=== PATIENT | male | born 1990 | race Caucasian/White ===

== ENCOUNTER 2018-09-15 22:55 | Emergency (ER) | payer BC ==
[2018-09-15 23:43] VITALS: BP 128/81
--- NOTE | 2018-09-16 00:35 | RADIOLOGY REPORT (SQ) ---
EXAM DESCRIPTION: Right wrist 3 views CLINICAL HISTORY: 28 years Male, fell on wrist COMPARISON: None. FINDINGS: A lucency extends transversely through the scaphoid waist. No displacement. Overall alignment of the carpus is anatomic. No additional fractures. IMPRESSION: 1. Age-indeterminate nondisplaced scaphoid fracture
--- NOTE | 2018-09-16 01:17 | ER Document Report ---
Addendum entered and electronically signed by TERRY SANTANA FNP 09/16/18 02:14: Procedures - Immobilization Left Wrist Pre-Proc Neuro Vasc Exam: Normal Immobilizer type: Thumb spica Performed by: PCT Post-Proc Neuro Vasc Exam: Normal, Unchanged from pre-exam Alignment checked and good: Yes Original Note: HPI - HPI Time Seen by Provider: 09/15/18 23:58 Pain Level: 3 Context: Patient is a pleasant 28-year-old male who presents to the emergency department with right wrist pain. Last night 1:00 in the morning that he jumped a fence and landed on his right wrist. He has pain at his anatomical snuffbox area. He states that he rolled on his right shoulder and does not recall how his wrist landed. Patient is right-handed. Denies any past medical history. He does not take any medications. - ROS Notes: REVIEW OF SYSTEMS: CONSTITUTIONAL : Denies recent illness. Denies recent unintentional weight loss. Denies fever, chills, or sweats. EENT: Denies eye, ear, throat, or mouth pain, discharge, or symptoms. Denies nasal or sinus congestion. CARDIOVASCULAR: Denies chest pain. RESPIRATORY: Denies shortness of breath, cough, congestion, difficulty breathing, or wheezing. GASTROINTESTINAL: Denies nausea, vomiting, and diarrhea. Denies abdominal pain. Denies constipation. GENITOURINARY: Denies difficulty urinating, burning, blood in urine, urgency or frequency. MUSCULOSKELETAL: See HPI SKIN: Denies rash, itchiness, or lesions HEMATOLOGIC : Denies easy bruising or bleeding. LYMPHATIC: Denies swollen, painful, enlarged glands. NEUROLOGICAL: Denies no numbness or tingling denies weakness. Denies headache. Denies altered mental status. Denies alteration in speech. PSYCHIATRIC: Denies stress, anxiety, alteration in sleep patterns, or depression. All other systems reviewed and negative. - MUSCULOSKELETAL Musculoskeletal: REPORTS: Extremity pain Past Medical History - General Information source: Patient - Social History Smoking Status: Never Smoker Family History: Arthritis, CAD, DM, Hyperlipidemia, Hypertension, Other - copd Patient has suicidal ideation: No Patient has homicidal ideation: No Renal/ Medical History: Denies: Hx Peritoneal Dialysis Musculoskeletal Medical History: Reports Hx Musculoskeletal Trauma Traumatic Medical History: Reports: Hx Fractures - Immunizations Immunizations up to date: Yes Hx Diphtheria, Pertussis, Tetanus Vaccination: Yes Vertical Provider Document - CONSTITUTIONAL Notes: PHYSICAL EXAMINATION: GENERAL: Appears well, healthy, well-nourished, no acute distress. HEAD: Normocephalic, atraumatic. EYES: PERRL, conjunctiva normal, all extraocular movements intact, sclera nonicteric ENT: Moist mucous membranes. NECK: Supple, no noticeable swelling, redness, rash. Normal range of motion. LUNGS: Equal breath sounds bilaterally and clear to auscultation. No wheezes rales or rhonchi. CARDIOVASCULAR: S1-S2, regular rate, regular rhythm. Radial pulses 2+, normal. ABDOMEN: Normoactive bowel sounds. Soft, nontender, no guarding, no rebound tenderness, and no masses palpated. EXTREMITIES: Tenderness noted to right forearm at the anatomical snuffbox area. Ecchymosis noted to lateral right wrist. NEUROLOGICAL: Moves all extremities upon command. PSYCH: Normal mood, normal affect. SKIN: Warm, dry. No rash, lesions, ulcerations noted. Normal skin turgor. - INFECTION CONTROL TRAVEL OUTSIDE OF THE [place] IN LAST 30 DAYS: No Course - Re-evaluation Re-evalutation: 09/16/18 01:17 The patient has a scaphoid fracture noted on x-ray, also consistent with pain in the anatomical snuffbox area. The patient will be placed in a thumb spica. He will be sent home with ibuprofen and Tylenol and follow-up with orthopedics. No vascular compromise noted. Radial pulses 2+. Capillary refill less than 3 seconds. Follow-up precautions were given. Verbal discharge instructions were given to the patient. They verbalized understanding. They are stable for discharge. - Vital Signs Vital signs: Temp Pulse Resp BP Pulse Ox 98.4 F 64 16 128/81 H 98 09/15/18 23:42 09/15/18 23:42 09/15/18 23:42 09/15/18 23:42 09/15/18 23:42 Discharge - Discharge Clinical Impression: Scaphoid fracture of wrist Qualifiers: Encounter type: initial encounter Scaphoid bone location: unspecified portion of scaphoid Fracture type: closed Fracture alignment: nondisplaced Laterality: right Qualified Code(s): S62.001A - Unspecified fracture of navicular [scaphoid] bone of right wrist, initial encounter for closed fracture Condition: Stable Disposition: HOME, SELF-CARE Additional Instructions: You were seen today in the emergency department for right wrist pain. You have a fracture in one of the bones of your wrist. You are being placed in a splint. Please keep the splint on your wrist as much as possible. Do not get splint wet. Please follow-up with orthopedics in regards to this visit. You can take Tylenol 1000 mg and ibuprofen 600 mg every 6 hours for your pain. Forms: Return to Work Referrals: SUSANNA WATTERS MD [ACTIVE STAFF] - 09/18/18
[2018-09-16] MEDS ORDERED: ACETAMINOPHEN 325 MG TABLET PO ONE ×2 (01:19→01:24)
[2018-09-16] MEDS ORDERED: IBUPROFEN 600 MG TABLET PO ONE (01:19)
[2018-09-16] MEDS ORDERED: HYDROCODONE/ACETAMINOPHEN 5-325 MG TABLET PO ONE (01:24)
== END 2018-09-16 02:23 | disposition home or self-care (01) ==
LOC: ER 22:55
DX: M25.531 Pain in right wrist (principal); W19.XXXA Unspecified fall, initial encounter; Y93.39 Activity, other involving climbing, rappelling and jumping off; S62.001A Unspecified fracture of navicular [scaphoid] bone of right wrist, initial encounter for closed fracture
CPT/HCPCS: 99283